=== PATIENT | female | born 1960 | race Caucasian/White ===

== ENCOUNTER 2020-03-13 07:38 | Outpatient (CLI) | payer BC, SELFPAY ==
--- NOTE | ~2020-03-13 | MM_ITS ---
EXAMINATION: MM screening sangeeta BI w ruperto HISTORY: Screening mammogram TECHNIQUE: Craniocaudal and mediolateral oblique 3-D tomosynthesis images were obtained and synthetic 2-D images were generated. CAD analysis was submitted and interpreted. COMPARISON: 09/02/2018, 08/21/2017, 08/14/2016 bilateral digital screening mammogram examinations BREAST PARENCHYMAL COMPOSITION: There are scattered areas of fibroglandular density.. FINDINGS: Status post right mastectomy with right breast reconstruction. There is no evidence of susp icious mass, calcification, or architectural distortion to suggest malignancy in either breast. There has been no suspicious interval change. IMPRESSION: 1. No mammographic evidence of malignancy. 2. Recommend routine screening mammography in one year. BI-RADS Category 1: Negative Reviewed, dictated and finalized at location A.
== END 2020-03-13 07:39 | disposition home or self-care (01) ==
PROVIDERS: PCP Physician Assistant; Visit Provider Physician Assistant
DX: Z12.31 Encounter for screening mammogram for malignant neoplasm of breast (principal)
CPT/HCPCS: 77063; 77067

== ENCOUNTER 2021-04-04 07:23 | Outpatient (CLI) | payer BC, SELFPAY ==
--- NOTE | ~2021-04-04 | MM_ITS ---
EXAMINATION: MM screening sangeeta BI w ruperto HISTORY: Screening mammogram, history of right mastectomy with implant reconstruction TECHNIQUE: Craniocaudal and mediolateral oblique 3-D tomosynthesis images were obtained and synthetic 2-D images were generated. CAD analysis was submitted and interpreted. COMPARISON: 03/13/2020, 09/02/2018, 08/21/2017 BREAST PARENCHYMAL COMPOSITION: There are scattered areas of fibroglandular density. FINDINGS: There is no evidence of suspicious mass, calcification, or architectural distortion to sugg est malignancy in either breast. There has been no suspicious interval change. IMPRESSION: 1. No mammographic evidence of malignancy. 2. Recommend routine screening mammography in one year. BI-RADS Category 1: Negative Reviewed, dictated and finalized at location A.
== END 2021-04-04 07:24 | disposition home or self-care (01) ==
LOC: ANHIMG 07:25
PROVIDERS: PCP Family Medicine; Visit Provider Physician Assistant
DX: Z12.31 Encounter for screening mammogram for malignant neoplasm of breast (principal)
CPT/HCPCS: 77063; 77067

== ENCOUNTER 2022-02-03 00:18 | Day surgery (SDC) | payer BC, SELFPAY ==
[2022-01-20 09:47] VITALS: BMI 25.5
[2022-02-03 06:49] VITALS: BP 133/86; PULSE 78; RESP 16; TEMP 36.6; O2SAT 100
[2022-02-03] MEDS: LACTATED RINGERS 1,000 ML 150 ML IV CONT (06:53)
--- NOTE | 2022-02-03 07:18 | PM.IMHP ---
H&P: HPI History of Present Illness Date/Time: 02/03/22 07:19 Chief Complaint: Neoplasia screening. Narrative: This is a 61-year-old white female patient presents for screening colonoscopy. Patient reports a normal screening colonoscopy 10 years prior. Patient reports that her current weight appetite and bowel movements are normal. She denies abdominal pain. Patient has had no bleeding. Family history is noncontributory. [facility] Past Medical History Medical History Breast cancer (~2007) Non-invasive ductal Mastectomy Cervical dysplasia (~2009) history of LEEP Surgical History Surgical History History of mastectomy (~2007) right breast with reconstruction Family History Family History Father Hypertension Family history of coronary artery disease Social History Social History (Updated 10/14/21 @ 08:37 by NINA Maynard) Smoking status: Never smoker Alcohol intake: current Drinks per week: 5 Alcohol use details: socially Substance use type: does not use Living arrangements: with family Spiritual care concerns: No Meds Home Medications and Allergies Home Medications Medication Instructions Recorded Confirmed Type cholecalciferol (vitamin D3) 25 25 mcg PO DAILY 10/14/21 02/03/22 History mcg (1,000 unit) capsule Allergies Allergy/AdvReac Type Severity Reaction Status Date / Time No Known Allergies Allergy Unverified 02/03/22 06:46 Vital Signs Vital Signs - 24 hr 02/03/22 06:49 Temperature 98 F Pulse Rate 78 Respiratory Rate 16 Blood Pressure 133/86 Pulse Oximetry 100 Oxygen Delivery Room Air Exam Narrative: Physical exam reveals patient be alert. Vital signs stable. HEENT exam is unremarkable. Lungs are clear to auscultation and percussion. Heart is without murmur or extra sounds. Abdomen bowel sounds are present soft nontender with no organomegaly. Digital external rectal exam is normal. Assessment and Plan Assessment and plan (1) Encounter for screening colonoscopy: Code(s): Z12.11 - Encounter for screening for malignant neoplasm of colon Status: Acute Assessment and Plan: Patient presents for screening colonoscopy. Appears to be at average risk for colon polyps. Further recommendations will be given after endoscopy.
--- NOTE | 2022-02-03 07:43 | P.PNAN_ITS ---
Anes - Initial Pre Proc Eval Procedure: Operation Date: 02/03/22 08:00 Proposed Procedures p Screening Colonoscopy - Evan Garcia MD Date/Time: 02/03/22 07:43 Surgeon: Evan Garcia MD Pre Op Diagnosis: neoplasm screening Patient Data Age: 61 Gender: F Height: 1.6 m Weight: 65.5 kg Last Vital Signs Temp 98 F 02/03/22 06:49 Pulse 78 02/03/22 06:49 Resp 16 02/03/22 06:49 BP 133/86 02/03/22 06:49 Pulse Ox 100 02/03/22 06:49 O2 Del Method Room Air 02/03/22 06:49 Allergies Allergy/AdvReac Type Severity Reaction Status Date / Time No Known Allergies Allergy Unverified 02/03/22 06:46 Home Medications Medication Instructions Recorded Confirmed Type cholecalciferol (vitamin D3) 25 25 mcg PO DAILY 10/14/21 02/03/22 History mcg (1,000 unit) capsule Patient hx anesthesia problems: none Family hx anesthesia problems: none Results Review: All pre-operative results and documents have been reviewed as part of the pre- operative evaluation. [facility], [facility] Past Medical History Medical History Breast cancer (~2007) Non-invasive ductal Mastectomy Cervical dysplasia (~2009) history of LEEP Surgical History Surgical History History of mastectomy (~2007) right breast with reconstruction Family History Family History Father Hypertension Family history of coronary artery disease Social History Social History (Updated 10/14/21 @ 08:37 by NINA Maynard) Smoking status: Never smoker Alcohol intake: current Drinks per week: 5 Alcohol use details: socially Substance use type: does not use Living arrangements: with family Spiritual care concerns: No Anes - Eval Final PreProcedure Day of Procedure 02/03/22 07:43 Patient weight: normal Heart: regular rate and rhythm Lungs: clear to auscultation Airway: Mallampati scale class II Neurological: alert and oriented Last oral intake: >/= 8 hours ASA classification: II Emergent: no Anesthetic plan: proceed Anesthesia type and monitoring: general GIVS and standard monitoring Results Review: All pre-operative results and documents have been reviewed as part of the pre- operative evaluation. Informed Consent: The patient's anesthetic plan and its attendant risks and benefits were discussed with the patient/family/POA. Questions were solicited and answers provided to the satisfaction of the patient/family/POA.
[2022-02-03 08:17] VITALS: BP 105/64; PULSE 78; RESP 20; O2SAT 99
[2022-02-03 08:27] VITALS: BP 103/81; PULSE 78; RESP 23; O2SAT 99
[2022-02-03 08:37] VITALS: BP 130/88; PULSE 63; RESP 20; O2SAT 100
== END 2022-02-03 08:39 | disposition home or self-care (01) ==
PROVIDERS: PCP Family Medicine; Visit Provider Internal Medicine Gastroenterology
PROC: 0DJD8ZZ Inspection of Lower Intestinal Tract, Via Natural or Artificial Opening Endoscopic (ICD-10-PCS; CPT 45378; principal; 2022-02-03 08:00)
DX: Z12.11 Encounter for screening for malignant neoplasm of colon (principal); Z85.3 Personal history of malignant neoplasm of breast
CPT/HCPCS: 45378; J2704; J7120

== ENCOUNTER 2022-07-02 08:35 | Outpatient (CLI) | payer BC, SELFPAY ==
--- NOTE | ~2022-07-02 | MM_ITS ---
EXAMINATION: MM screening sangeeta BI w ruperto HISTORY: Screening mammogram, history of right mastectomy with implant reconstruction TECHNIQUE: Craniocaudal and mediolateral oblique 3-D tomosynthesis images were obtained and synthetic 2-D images were generated. CAD analysis was submitted and interpreted. COMPARISON: 04/04/2021, 03/13/2020, 09/02/2018 BREAST PARENCHYMAL COMPOSITION: There are scattered areas of fibroglandular density. FINDINGS: No suspicious mass, calcification, or architectural distortion are identified in either bibiana ast to suggest malignancy. There has been no suspicious interval change. IMPRESSION: 1. No mammographic evidence of malignancy. 2. Recommend routine screening mammography in one year. BI-RADS Category 1: Negative Reviewed, dictated and finalized at location A. S HUNTER
== END 2022-07-02 08:36 | disposition home or self-care (01) ==
LOC: ANHIMG 08:37
PROVIDERS: PCP Family Medicine; Visit Provider Family Medicine
DX: Z12.31 Encounter for screening mammogram for malignant neoplasm of breast (principal)
CPT/HCPCS: 77063; 77067

== ENCOUNTER 2023-07-06 07:24 | Outpatient (CLI) | payer BC, SELFPAY ==
--- NOTE | ~2023-07-06 | MM_ITS ---
EXAMINATION: MM screening sangeeta BI w ruperto HISTORY: Screening mammogram, history of right mastectomy with implant reconstruction TECHNIQUE: Craniocaudal and mediolateral oblique 3-D tomosynthesis images were obtained and synthetic 2-D images were generated. CAD analysis was submitted and interpreted. COMPARISON: 07/02/2022, 04/04/2021, 03/13/2020 BREAST PARENCHYMAL COMPOSITION: There are scattered areas of fibroglandular density. FINDINGS: No suspicious mass, calcification, or architectural distortion are identified in either bibiana ast to suggest malignancy. There has been no suspicious interval change. IMPRESSION: 1. No mammographic evidence of malignancy. 2. Recommend routine screening mammography in one year. BI-RADS Category 1: Negative Reviewed, dictated and finalized at location A. IAL AGENT SECRET SERVICE
== END 2023-07-06 07:25 | disposition home or self-care (01) ==
LOC: ANHIMG 07:28
PROVIDERS: PCP Family Medicine; Visit Provider Family Medicine
DX: Z12.31 Encounter for screening mammogram for malignant neoplasm of breast (principal)
CPT/HCPCS: 77063; 77067

== ENCOUNTER 2024-04-04 14:33 | Outpatient (CLI) | payer MEDICARE, SELFPAY ==
--- NOTE | ~2024-04-04 | DEXA_ITS ---
Bone Density Report Name: ANDREAS CALLES Age: 63 Sex: Female Ethnicity: White Date of : 1960 Indication: postmenopausal; screening for osteoporosis; cancer; Referring Provider: Katerine Merritt Study: Bone densitometry was performed. Exam Date: April 04, 2024 Accession number: [id number] Bone Density: Region BMD T-score Z-score Classification AP Spine(L1-L4) 0.949 -0.9 0.9 Normal Femoral Neck (Left) 0.671 -1.6 -0.1 Osteopenia Total Hip (Left) 0.907 -0.3 1.0 Normal Femoral Neck (Right) 0.563 -2.6 -1.1 Osteoporosis Total Hip (Right) 0.796 -1.2 0.0 Osteopenia Femoral Neck Mean 0.617 -2.1 -0.6 Osteopenia Total Hip Mean 0.852 -0.7 0.5 Normal World Health Organization criteria for BMD impression classify patients as: Normal (T-score at or above -1.0), Osteopenia (T-score between -1.0 and -2.5), or Osteoporosis (T-score at or below -2.5). 10-year Fracture Risk: FRAX not reported because: Some T-score for Spine Total or Hip Total or Femoral Neck at or below -2.5 Clinical Information Provided by Patient: Has used the following medications: Vitamin D, Calcium Has the following medical conditions: Cancer Patient maximum height was 62 Menopause Age: 48 No regular weight bearing exercise Does not regularly consume dairy products Drinks caffeinated beverages Onset of menses at age 11 Number of children 2 Impression: The patient has osteoporosis, based on the Right Femoral Neck T-score. Discussion: INCREASED RISK OF FRACTURE. BONE DENSITY IS UNDESIRABLY LOW AT ONE OR MORE SKELETAL SITES, CONSISTENT WITH POSTMENOPAUSAL OSTEOPOROSIS. This patient's lowest T-score meets the World Health Organization's (WHO) criteria for osteoporosis at one or more sites (T-score -2.5 or below). In untreated patients, the risk of osteoporotic fracture increases approximately two-fold for each 1.0 SD decrease in T-score. Low bone density is not the only risk factor for fracture; also consider factors such as patient's age, frailty or poor health, risk of falling, risk of injury, previous osteoporotic fracture, family history of osteoporosis, cigarette smoking, low body weight, etc. Not everyone with low bone mineral density has osteoporosis; osteomalacia and other metabolic bone disorders should also be considered. Patients who have osteoporosis should be evaluated for specific diseases and conditions (secondary causes) that may cause or contribute to bone loss. The [place] Association [employer] Clinical Endocrinologists (AACE) and National Osteoporosis Foundation (NOF) recommend pharmacologic intervention for all postmenopausal women whose T-score is in this range. The patient should follow a healthful lifestyle (good nutrition with adequate calcium and vitamin D, and appropriate weight-bearing exercise)
== END 2024-04-04 14:34 | disposition home or self-care (01) ==
PROVIDERS: PCP Family Medicine; Visit Provider Obstetrics & Gynecology Gynecology
DX: Z78.0 Asymptomatic menopausal state (principal); M85.89 Other specified disorders of bone density and structure, multiple sites; M81.0 Age-related osteoporosis without current pathological fracture
CPT/HCPCS: 77080

== ENCOUNTER 2024-08-02 07:36 | Outpatient (CLI) | payer MEDICARE, SELFPAY ==
--- NOTE | ~2024-08-02 | MM_ITS ---
EXAMINATION: MM screening sangeeta BI w ruperto HISTORY: Screening TECHNIQUE: Craniocaudal and mediolateral oblique 3-D tomosynthesis images were obtained and synthetic 2-D images were generated. CAD analysis was submitted and interpreted. COMPARISON: Comparison to multiple prior studies sequentially, with oldest reviewed study dated 08/21. BREAST PARENCHYMAL COMPOSITION: Not dense: There are scattered areas of fibroglandular density. FINDINGS: There is a subpectoral right breast implant. There is no evidence of suspicious mass, calci fication, or architectural distortion to suggest malignancy in either breast. There has been no suspi cious interval change. IMPRESSION: 1. No mammographic evidence of malignancy. 2. Recommend routine screening mammography in one year. BI-RADS Category 1: Negative Reviewed, dictated and finalized at location B. ENTER [place]
--- OUTSIDE RECORDS SUMMARY | 2024-08-02 07:40 | XMS_ITS | Clinical Summary ---
Author Organization [facility] [employer] Address [address] [place] [address] Care Team Providers Care Operations And Maintenance Supervisor Name Role Phone Yaakov Vega MD Primary Care Provider [phone] Source Comments [facility] [employer],non-owned Affiliates and Associated Physician Practices is amultiple site organization consisting of ambulatory clinics and hospital sitesin [place], [place], [place] and [place]. This disclosure is being madepursuant to the Care Everywhere program and may not contain all information available regarding this patient. Last updated 18.[employer] Allergies No known active allergies Medications * Be aware that medications may not be up to date on this document. Alwaysverify current medications with the patient. Medication Sig Dispensed Refills Start Date End Date Status calcium 500 mg TABS tablet Take 500 mg by mouth 2 times daily with morning and evening meal Active benzonatate (TESSALON) 200 MG capsule Take 1 capsule by mouth 3 times daily as needed for Cough 30 capsule 07/04/2019 Active Immunizations Name Administration Dates Next Due FLU VACCINE QUAD IIV4 PF ID 04/29/2016 Social History Tobacco Use Types Packs/Day Years Used Date Smoking Tobacco: Never Smokeless Tobacco: Never Sex and Gender Information Value Date Recorded Sex Assigned at Not on file Gender Identity Not on file Sexual Orientation Not on file Last Filed Vital Signs Vital Sign Reading Time Taken Comments Blood Pressure 142/82 07/04/2019 10:40 AM FURNACE STOCK INSPECTOR Pulse 87 07/04/2019 10:40 AM FURNACE STOCK INSPECTOR Temperature 37.2 ??C (98.9 ??F) 07/04/2019 10:[address] Respiratory Rate 16 07/04/2019 10:40 AM FURNACE STOCK INSPECTOR Oxygen Saturation 97% 07/04/2019 10:40 AM FURNACE STOCK INSPECTOR Inhaled Oxygen Concentration - - Weight 68 kg (150 lb) 07/04/2019 10:40 AM FURNACE STOCK INSPECTOR Height 160 cm (5' 3 ) 07/04/2019 10:40 AM FURNACE STOCK INSPECTOR Body Mass Index 26.57 07/04/2019 10:40 AM FURNACE STOCK INSPECTOR Plan of Treatment Health Maintenance Due Date Last Done Comments BONE DENSITY TESTING 1960 COLOGUARD (AGES 45-75) - COL ON CA SCREENING 1960 COLON MONITORING 1960 COLONOSCOPY - COLON CA SCREENING 1960 CT COLONOGRAPHY - COLON CA SCREENING 1960 Colorectal Cancer Screening 1960 FIT - COLON CA SCREENING 1960 FLEX SIG - COLON CA SCREENING 1960 LIPID TESTING 1960 MAMMOGRAM 1960 PAP SMEAR 1958 HIV SCREENING 1973 HEPATITIS C SCREENING 12/06/1976 DTAP/TDAP/TD VACCINES (1 - Tdap) 1977 PNEUMOCOCCAL VACCINE 50+ (1 of 1 - PCV) 2008 ZOSTER VACCINE (1 of 2) 2008 SCREENING FOR DIABETES 07/04/2019 COVID-19 VACCINE ( - 2023-2 5 season) 2024 INFLUENZA VACCINE (#1) 2024 04/29/2016 DEPRESSION SCREENING 06/29/2024 Respiratory Syncytial Virus (RSV) Vaccine Pt: or over 60 yrs (1 - 1-dose 75+ series) 2033 HEPATITIS B VACCINE Aged Out No longe r eligible based on patient's age to complete this topic HIB VACCINE Aged Out No longer eligi ble based on patient's age to complete this topic HPV VACCINE Aged Out No longer eligi ble based on patient's age to complete this topic MENINGOCOCCAL (Group B) VACCINE Aged Out No longer eligible based on patient's age to complete this topic MENINGOCOCCAL VACCINE Aged Out No idania ronald eligible based on patient's age to complete this topic Care Teams Operations And Maintenance Supervisor Relationship Specialty Start Date End Date Yaakov Vega MD [address] [place] [id number] PCP - General Family Medicine 04/29/16
--- OUTSIDE RECORDS SUMMARY | 2024-08-02 07:40 | XMS_ITS | Patient Health Summary ---
Author Organization [facility] [employer] Address [address] [place] [address] Care Team Providers Care Fish Warden Name Role Phone Yaakov Vega MD Primary Care Provider [phone] Note from [facility] [employer] [facility],non-owned Affiliates and Associated Physician Practices is amultiple site organization consisting of ambulatory clinics and hospital sitesin [place], [place], [place] and [place]. This disclosure is being madepursuant to the Care Everywhere program and may not contain all information available regarding this patient. Last updated 18.[facility] [employer] Allergies No known active allergies Medications * Be aware that medications may not be up to date on this document. Alwaysverify current medications with the patient. * calcium 500 mg TABS tablet Take 500 mg by mouth 2 times daily with morning and evening meal * benzonatate (TESSALON) 200 MG capsule(Started 07/04/2019) Take 1 capsule by mouth 3 times daily as needed for Cough Immunizations * FLU VACCINE QUAD IIV4 PF ID(Given 04/29/2016) Social History Tobacco Use Types Packs/Day Years Used Date Smoking Tobacco: Never Smokeless Tobacco: Never Sex and Gender Information Value Date Recorded Sex Assigned at Not on file Gender Identity Not on file Sexual Orientation Not on file Last Filed Vital Signs Vital Sign Reading Time Taken Comments Blood Pressure 142/82 07/04/2019 10:40 AM VENEER JOINTER OFFBEARER Pulse 87 07/04/2019 10:40 AM VENEER JOINTER OFFBEARER Temperature 37.2 ??C (98.9 ??F) 07/04/2019 10:[address] Respiratory Rate 16 07/04/2019 10:40 AM VENEER JOINTER OFFBEARER Oxygen Saturation 97% 07/04/2019 10:40 AM VENEER JOINTER OFFBEARER Inhaled Oxygen Concentration - - Weight 68 kg (150 lb) 07/04/2019 10:40 AM VENEER JOINTER OFFBEARER Height 160 cm (5' 3 ) 07/04/2019 10:40 AM VENEER JOINTER OFFBEARER Body Mass Index 26.57 07/04/2019 10:40 AM VENEER JOINTER OFFBEARER Care Teams Fish Warden Relationship Specialty Start Date End Date Yaakov Vega MD [address] [place] [phone] PCP - General Family Medicine 04/29/16
--- OUTSIDE RECORDS SUMMARY | 2024-08-02 07:40 | XMS_ITS | Referral Summary ---
Author Organization [facility] [employer] Address [address] [place] [address] Care Team Providers Care Photoengraving Etcher Apprentice Name Role Phone Yaakov Vega MD Primary Care Provider [phone] Source Comments [facility] [employer],non-owned Affiliates and Associated Physician Practices is amultiple site organization consisting of ambulatory clinics and hospital sitesin [place], [place], [place] and [place]. This disclosure is being madepursuant to the Care Everywhere program and may not contain all information available regarding this patient. Last updated 18.[employer] Allergies No known active allergies Medications * [...] Comments Blood Pressure 142/82 07/04/2019 10:40 AM SWITCHBOARD CLERK Pulse 87 07/04/2019 10:40 AM SWITCHBOARD CLERK Temperature 37.2 ??C (98.9 ??F) 07/04/2019 10:[address] Respiratory Rate 16 07/04/2019 10:40 AM SWITCHBOARD CLERK Oxygen Saturation 97% 07/04/2019 10:40 AM SWITCHBOARD CLERK Inhaled Oxygen Concentration - - Weight 68 kg (150 lb) 07/04/2019 10:40 AM SWITCHBOARD CLERK Height 160 cm (5' 3 ) 07/04/2019 10:40 AM SWITCHBOARD CLERK Body Mass Index 26.57 07/04/2019 10:40 AM SWITCHBOARD CLERK Plan of Treatment Not on file Care Teams Photoengraving Etcher Apprentice Relationship Specialty Start Date End Date Yaakov Vega MD [address] [phone] PCP - General Family Medicine 04/29/16
== END 2024-08-02 07:37 | disposition home or self-care (01) ==
PROVIDERS: PCP Family Medicine; Visit Provider Family Medicine
DX: Z12.31 Encounter for screening mammogram for malignant neoplasm of breast (principal)
CPT/HCPCS: 77063; 77067

== ENCOUNTER 2025-01-13 08:22 | Outpatient (CLI) | payer MEDICARE, SELFPAY ==
--- OUTSIDE RECORDS SUMMARY | 2025-01-13 08:28 | XMS_ITS | Clinical Summary ---
Author Organization [facility] [employer] Address [address] [place] [address] Care Team Providers Care Superintendent Building Name Role Phone Yaakov Vega MD Primary Care Provider [phone] Source Comments [facility] [employer],non-owned Affiliates and Associated Physician Practices is amultiple site organization consisting of ambulatory clinics and hospital sitesin [place], [place], [place] and [place]. This disclosure is being madepursuant to the Care Everywhere program and may not contain all information available regarding this patient. Last updated 18.[employer] Allergies No known active allergies Medications * Be aware that medications may not be up to date on this document. Alwaysverify current medications with the patient. calcium 500 mg TABS tablet Take 500 mg by mouth 2 times daily with morning and evening meal Active benzonatate (TESSALON) 200 MG capsule Take 1 capsule by mouth 3 times daily as needed for Cough 30 capsule 07/04/2019 Active Immunizations Immunization Administration Dates Next Due FLU VACCINE QUAD IIV4 PF ID 04/29/2016 Social History Tobacco Use Types Packs/Day Years Used Date Smoking Tobacco: Never Smokeless Tobacco: Never Comments No Sex and Gender Information Value Date Recorded Sex Assigned at Not on file Legal Sex Female 11:35 AM CDT Gender Identity Not on file Sexual Orientation Not on file Last Filed Vital Signs Vital Sign Reading Time Taken Comments Blood Pressure 142/82 07/04/2019 10:40 AM TRAFFIC OR SYSTEM DISPATCHER Pulse 87 07/04/2019 10:40 AM TRAFFIC OR SYSTEM DISPATCHER Temperature 37.2 C (98.9 F) 07/04/2019 10:40 AM TRAFFIC OR SYSTEM DISPATCHER Respiratory Rate 16 07/04/2019 10:40 AM TRAFFIC OR SYSTEM DISPATCHER Oxygen Saturation 97% 07/04/2019 10:40 AM TRAFFIC OR SYSTEM DISPATCHER Inhaled Oxygen Concentration - - Weight 68 kg (150 lb) 07/04/2019 10:40 AM TRAFFIC OR SYSTEM DISPATCHER Height 160 cm (5' 3) 07/04/2019 10:40 AM TRAFFIC OR SYSTEM DISPATCHER Body Mass Index 26.57 07/04/2019 10:40 AM TRAFFIC OR SYSTEM DISPATCHER Plan of Treatment Health Maintenance Due Date Last Done Comments BONE DENSITY TESTING 1960 COLOGUARD (AGES 45-75) - COL ON CA SCREENING 1960 COLON MONITORING 1960 COLONOSCOPY - COLON CA SCREENING 1958 CT COLONOGRAPHY - COLON CA SCREENING 1960 Colorectal Cancer Screening 1960 FIT - COLON CA SCREENING 1958 FLEX SIG - COLON CA SCREENING 1958 LIPID TESTING 1960 MAMMOGRAM 1960 HEPATITIS C SCREENING 12/06/1976 DTAP/TDAP/TD VACCINES (1 - Tdap) 1977 PNEUMOCOCCAL VACCINE 50+ (1 of 1 - PCV) 2008 ZOSTER VACCINE (1 of 2) 2008 SCREENING FOR DIABETES 07/04/2019 COVID-19 VACCINE ( - 2023-2 5 season) 2024 DEPRESSION SCREENING 06/29/2024 INFLUENZA VACCINE (#1) 2025 04/29/2016 Respiratory Syncytial Virus (RSV) Vaccine Pt: or [...] to complete this topic MENINGOCOCCAL (Group B) VACC INE SHARED DECISION-MAKING Aged Out No longer eligibl e based on patient's age to complete this topic MENINGOCOCCAL GROUPS A/C/Y/W VACCINE Aged Out No longer eligible b ased on patient's age to complete this topic Insurance [facility] Care Teams Superintendent Building Relationship Specialty Start Date End Date Yaakov Vega MD [address] [place] [phone] PCP - General Family Medicine 04/29/16
[2025-01-13 18:08] LABS: Hematocrit 42.8 % (37.0-47.0); Hemoglobin 13.5 g/dL (12.0-15.0); Mean Corpuscular HGB Conc 31.5 g/dl (32-36); Mean Corpuscular Hemoglobin 30.6 pg (26-34); Mean Corpuscular Volume 97.1 fl (80-100); Platelet Count Result 280 k/mm3 (150-375); Red Blood Count 4.41 M/mm3 (4.2-5.4); White Blood Count 4.2 K/mm3 (4.5-10.0)
[2025-01-13 18:14] LABS: Add Urine Microscopic? NO; Appearance Urine Clear (Clear); Glucose Urine UA Negative (Negative); Leukocyte Esterase Ur Negative LEU/UL (Negative); Nitrate Urine Negative (Negative); Specific Grav Ur 1.012 (1.001-1.035)
[2025-01-13 18:31] LABS: Alanine Aminotransferase 22 U/L (6-35); Albumin Level 4.2 g/dL (3.5-5.1); Alkaline Phosphatase 69 U/L (38-126); Anion Gap 6 mmol/L (4-12); Aspartate Amino Transferase 54 U/L (14-36); Bilirubin,Total 0.6 mg/dL (0.2-1.3); Blood Urea Nitrogen 16 mg/dL (7-17); Calcium 9.4 mg/dL (8.4-10.2); Carbon Dioxide 27 mmol/L (22-30); Chloride 105 mmol/L (98-107); Cholesterol 213 mg/dL (0-200); Estimated Glomerular Filt Rate > 60; Glucose 90 mg/dL (65-110); HDL Direct 69 mg/dL; Potassium 4.3 mmol/L (3.4-5.0); Sodium 138 mmol/L (137-145); Total Protein 7.1 g/dL (6.3-8.2); Triglycerides 58 mg/dL (<150)
[2025-01-13 19:07] LABS: Thyroid Stimulating Hormone 1.270 uIU/mL (0.465-4.680)
== END 2025-01-13 08:23 | disposition home or self-care (01) ==
PROVIDERS: PCP Family Medicine; Visit Provider Nurse Practitioner
DX: E78.5 Hyperlipidemia, unspecified (principal); E55.9 Vitamin D deficiency, unspecified; E03.9 Hypothyroidism, unspecified; I10 Essential (primary) hypertension
CPT/HCPCS: 36415; 80053; 80061; 81003; 82306; 84443; 85027